=== PATIENT | female | born 1950 | race Caucasian/White ===

== ENCOUNTER 2023-06-19 17:40 | Emergency (ER) | payer OTHER, MEDICAID ==
[~2023-06-19] VITALS: Ht 160 cm; Wt 54.4 kg
[2023-06-19 17:41] VITALS: BP 117/68; PULSE 87; RESP 16; TEMP 98.8; O2SAT 97
[2023-06-19] MEDS ORDERED: KETOROLAC 30 MG/ML VIAL IM ONE (18:55)
[2023-06-19] MEDS ORDERED: oxyCODONE 10 MG TABER PO ONE ×2 (18:55→20:25)
[2023-06-19] MEDS ORDERED: ACETAMINOPHEN EXTRA STRENGTH 500 MG TAB PO ONE (18:55)
[2023-06-19] MEDS ORDERED: OXYC-79 PO (20:10)
[2023-06-19 20:17] VITALS: BP 123/81; PULSE 85; RESP 14
[2023-06-19] MEDS ORDERED: KETOROLAC 15 MG/ML VIAL ONE (20:20)
[2023-06-19] MEDS ORDERED: ACETAMINOPHEN EXTRA STRENGTH 500 MG TAB ONE (20:20)
[2023-06-19 20:23] VITALS: O2SAT 95
[2023-06-19] MEDS ORDERED: CRUSHER, PILL MC ONE (20:30)
== END 2023-06-19 21:05 | disposition home or self-care (01) ==
LOC: MED 17:40
DX: S42.211A Unspecified displaced fracture of surgical neck of right humerus, initial encounter for closed fracture (principal); S42.251A Displaced fracture of greater tuberosity of right humerus, initial encounter for closed fracture; Z90.710 Acquired absence of both cervix and uterus; Z79.899 Other long term (current) drug therapy; W01.0XXA Fall on same level from slipping, tripping and stumbling without subsequent striking against object, initial encounter; Y93.89 Activity, other specified; Y92.89 Other specified places as the place of occurrence of the external cause; Y99.8 Other external cause status
CPT/HCPCS: 73030; 96372; 99283; J1885